=== PATIENT | female | born 1975 | race Caucasian/White ===

== ENCOUNTER 2022-04-27 11:10 | Emergency (ER) | payer BC, SELFPAY ==
[2022-04-27 11:24] VITALS: BP 130/80; PULSE 94; RESP 16; TEMP 36.5; O2SAT 100
--- NOTE | 2022-04-27 11:53 | ED.URI ---
HPI - URI/Sore Throat General Chief Complaint: Upper Respiratory Infection Stated Complaint: Sinus Time Seen by Provider: 04/27/22 11:54 Source: patient, RN notes reviewed and old records reviewed Mode of arrival: ambulatory Limitations: no limitations History of Present Illness HPI Narrative: 46-year-old female presents to the [facility] concerns for sinus infection. Has had symptoms of sinus pain, pressure, ear pain for over 2 weeks. Reports that her grandson was hospitalized for a viral infection and dehydration Related Data Home Medications Medication Instructions Recorded Confirmed apremilast 30 mg tablet (Otezla) mg PO 04/27/22 celecoxib 100 mg capsule mg 04/27/22 ciclopirox 1 % shampoo topical 04/27/22 clobetasol 0.05 % scalp solution topical 04/27/22 dextroamphetamine-amphetamine ER PO 04/27/22 10 mg 24hr capsule,extend release duloxetine 60 mg capsule,delayed mg PO 04/27/22 release folic acid 1 mg tablet 04/27/22 hydroxyzine HCl 25 mg tablet mg 04/27/22 ketoconazole 2 % shampoo topical 04/27/22 metoprolol succinate 100 mg mg PO 04/27/22 tablet,extended release 24 hr ropinirole 2 mg tablet mg 04/27/22 topiramate 25 mg tablet mg 04/27/22 Allergies Allergy/AdvReac Type Severity Reaction Status Date / Time cyclobenzaprine Allergy Unknown Blister Verified 04/27/22 11:28 erythromycin base Allergy Unknown Anaphylaxis Unverified 04/27/22 11:28 lisdexamfetamine Allergy Unknown Blister Verified 04/27/22 11:28 Penicillins Allergy Unknown Anaphylaxis Verified 04/27/22 11:28 Sulfa (Sulfonamide Allergy Unknown Blister Unverified 04/27/22 11:28 Antibiotics) vancomycin Allergy Unknown Anaphylaxis Verified 04/27/22 11:28 Review of Systems Review of Systems: All systems reviewed & are unremarkable except as noted in HPI and below Constitutional: Constitutional: Reports no additional constitutional complaints Eyes: Eyes: Reports no additional eye complaints ENT: Reports as per HPI Cardiovascular: Cardiovascular: Reports no additional cardiovascular complaints, Denies chest pain and Denies dyspnea Respiratory: Respiratory: Reports no additional respiratory complaints, Denies chest congestion, Denies cough and Denies dyspnea Gastrointestinal: Gastrointestinal: Reports no additional gastrointestinal complaints, Denies abdominal pain, Denies nausea and Denies vomiting Musculoskeletal: Musculoskeletal: Reports no additional musculoskeletal complaints Integumentary/Breasts: Skin/Breast: Reports system reviewed and no additional complaints, except as docu Neurologic: Reports system reviewed and no additional complaints, except as documented Psychiatric: Psychiatric: Reports no additional psychiatric complaints Allergic/Immunologic: Allergic/Immunologic: Reports no additional allergic/immunologic complaints PMFSH Family History Family History Father Family history of heart disease in male family member before age 55 Other Family history of malignant neoplasm of breast Social History Social History Alcohol intake: current Comments At the time of my signature, I reviewed and agree with the nursing past medical, surgical, social, and family history. There is no relevant family history pertinent to the patient complaint. Exam Const: General: cooperative, healthy appearing, comfortable, no acute distress, well developed, alert and well nourished Nutritional Appearance: well nourished and obese Orientation/consciousness: patient oriented x3 Limitations: no limitations HENMT: Head: normal to inspection Ears: hearing grossly normal bilaterally, external ears normal, EAC's normal and TM abnormal with fluid behind the TM bilateral Face/Nose/Sinus: Normal external nose present, Normal nares present, Abnormal mucous membranes and turbinates present boggy and erythematous, normal facial ex
== END 2022-04-27 12:10 | disposition home or self-care (01) ==
PROVIDERS: Emergency Provider Nurse Practitioner; PCP Physician Assistant Medical
DX: J32.9 Chronic sinusitis, unspecified (principal)
CPT/HCPCS: 99213; G0463

== ENCOUNTER 2023-02-02 11:42 | Emergency (ER) | payer BC, SELFPAY ==
[2023-02-02 12:13] VITALS: BP 123/93; PULSE 86; RESP 20; TEMP 37; O2SAT 99
--- NOTE | 2023-02-02 12:34 | ED.WOUNDLAC ---
HPI - Wound/Laceration General Chief Complaint: Wound/Laceration Stated Complaint: right middle finger cut Source: patient Mode of arrival: ambulatory Limitations: no limitations History of Present Illness HPI narrative: 47-year-old female presents to [facility] with complaints of avulsion injury to her right 3rd finger after cutting it using a mandoline slicer last evening at her home. Patient reports her last tetanus shot is within the past 5 years. Patient reports that there was no active bleeding but wound was bleeding as of late last night. Patient reports that she is here today to have the area cleansed. Patient denies numbness, tingling, decreased range of motion. Onset (ago): day(s) (1) Place: home Patient tetanus UTD: Yes Context: accidental Related Data Home Medications Medication Instructions Recorded Confirmed apremilast 30 mg tablet (Otezla) mg PO 04/27/22 celecoxib 100 mg capsule mg 04/27/22 ciclopirox 1 % shampoo topical 04/27/22 clobetasol 0.05 % scalp solution topical 04/27/22 dextroamphetamine-amphetamine ER PO 04/27/22 10 mg 24hr capsule,extend release duloxetine 60 mg capsule,delayed mg PO 04/27/22 release folic acid 1 mg tablet 04/27/22 hydroxyzine HCl 25 mg tablet mg 04/27/22 ketoconazole 2 % shampoo topical 04/27/22 metoprolol succinate 100 mg mg PO 04/27/22 tablet,extended release 24 hr ropinirole 2 mg tablet mg 04/27/22 topiramate 25 mg tablet mg 04/27/22 Allergies Allergy/AdvReac Type Severity Reaction Status Date / Time cyclobenzaprine Allergy Unknown Blister Verified 02/02/23 12:10 erythromycin base Allergy Unknown Anaphylaxis Verified 02/02/23 12:10 lisdexamfetamine Allergy Unknown Blister Verified 02/02/23 12:10 Penicillins Allergy Unknown Anaphylaxis Verified 02/02/23 12:10 Sulfa (Sulfonamide Allergy Unknown Blister Verified 02/02/23 12:10 Antibiotics) vancomycin Allergy Unknown Anaphylaxis Verified 02/02/23 12:10 Review of Systems Constitutional: Constitutional: Denies chills, Denies fatigue, Denies fever(s) and Denies weakness ENT: Denies dizziness, Denies epistaxis and Denies nasal congestion Cardiovascular: Cardiovascular: Denies chest pain Respiratory: Respiratory: Denies cough, Denies dyspnea and Denies wheezing Musculoskeletal: Musculoskeletal: Denies arthralgias and Denies joint swelling Integumentary/Breasts: Skin/Breast: Denies pruritus Comments: avulsion injury to right 3rd finger Neurologic: Denies dizziness, Denies syncope and Denies headache(s) Allergic/Immunologic: Allergic/Immunologic: Denies lip swelling, Denies throat swelling, Denies tongue swelling and Denies wheezing PMFSH Family History Family History Father Family history of heart disease in male family member before age 55 Other Family history of malignant neoplasm of breast Social History Social History Alcohol intake: current Comments At time of signature, I agree with nursing past medical, surgical, social and family history. There is no relevant family history pertinent to the presenting complaint. Exam Const: General: healthy appearing and no acute distress Nutritional Appearance: well nourished Orientation/consciousness: patient oriented x3 Limitations: no limitations HENMT: Head: normal to inspection Eyes: Conjunctivae: conjunctivae normal Neck: Neck: normal visual inspection Resp: Effort & Inspection: normal respiratory effort and not labored Auscultation: clear to auscultation bilaterally, no crackles, no rales, no rhonchi and no wheezes Cardio: Rate: regular rate Rhythm: regular rhythm Heart sounds: no murmurs Skin: General skin exam: normal color Rashes: no rashes Wounds: wounds noted avulsion right 3rd finger Other: No active bleeding noted, dried blood noted to wound Neuro: General: patient oriented x3 S
== END 2023-02-02 13:04 | disposition home or self-care (01) ==
PROVIDERS: Emergency Provider Nurse Practitioner Family; PCP Physician Assistant Medical
DX: S61.212A Laceration without foreign body of right middle finger without damage to nail, initial encounter (principal); W27.4XXA Contact with kitchen utensil, initial encounter
CPT/HCPCS: 99212; G0463

== ENCOUNTER 2023-03-16 16:11 | Emergency (ER) | payer BC, SELFPAY ==
[2023-03-16 16:38] VITALS: BP 142/97; PULSE 84; RESP 18; TEMP 36.5; O2SAT 100
--- NOTE | 2023-03-16 16:54 | ED.NAVMDI ---
HPI - Nausea/Vomiting/Diarrhea General Chief complaint: Nausea/Vomiting/Diarrhea Stated complaint: diarrhea,stomach cramps Time Seen by Provider: 03/16/23 16:54 Source: patient Mode of arrival: ambulatory Limitations: no limitations History of Present Illness HPI Narrative: 47-year-old female presents with complaint of nausea, diarrhea, abdominal cramping Starting last night. Has had several episodes of diarrhea. States once nausea started she took Zofran and has not had any vomiting. Last Zofran at 1:00 p.m. afebrile. Also reports fatigue body aches and chills. All systems reviewed and negative except as noted above. Related Data Home Medications Medication Instructions Recorded Confirmed dextroamphetamine-amphetamine ER 10 mg PO DAILY 04/27/22 03/16/23 10 mg 24hr capsule,extend release duloxetine 60 mg capsule,delayed 60 mg PO DAILY 04/27/22 03/16/23 release hydroxyzine HCl 25 mg tablet 25 mg PO DAILY 04/27/22 03/16/23 metoprolol succinate 100 mg 100 mg PO DAILY 04/27/22 03/16/23 tablet,extended release 24 hr ropinirole 2 mg tablet 2 mg PO DAILY 04/27/22 03/16/23 topiramate 25 mg tablet 25 mg PO DAILY 04/27/22 03/16/23 hydroxychloroquine 200 mg tablet mg PO 03/16/23 risankizumab-rzaa 150 mg/mL 150 mg subcut [id number] 03/16/23 03/16/23 subcutaneous pen injector (Skyrizi) Allergies Allergy/AdvReac Type Severity Reaction Status Date / Time cyclobenzaprine Allergy Unknown Blister Verified 03/16/23 16:33 erythromycin base Allergy Unknown Anaphylaxis Verified 03/16/23 16:33 lisdexamfetamine Allergy Unknown Blister Verified 03/16/23 16:33 Penicillins Allergy Unknown Anaphylaxis Verified 03/16/23 16:33 Sulfa (Sulfonamide Allergy Unknown Blister Verified 03/16/23 16:33 Antibiotics) vancomycin Allergy Unknown Anaphylaxis Verified 03/16/23 16:33 Review of Systems Review of Systems: CONSTITUTIONAL: Denies fever, chills, or sweats. EYES: Denies visual changes, redness, or discharge. ENT: Denies rhinorrhea, congestion, sore throat, or otalgia. CARDIOVASCULAR: Denies chest pain, palpitations, or edema. RESPIRATORY: Denies cough or dyspnea. GASTROINTESTINAL: Reports abdominal cramping, nausea, and diarrhea. denies vomiting GENITOURINARY: Denies dysuria or hematuria. SKIN: Denies rash or itching. MUSCULOSKELETAL: Denies back pain, joint pain, or myalgia. NEUROLOGIC: Denies headache, numbness, or weakness. PSYCHIATRIC: Denies anxiety or depression. All other systems reviewed are negative, except as documented in HPI. FORMERLY [facility], [facility]1983 Family History Family History Father Family history of heart disease in male family member before age 55 Other Family history of malignant neoplasm of breast Social History Social History Alcohol intake: current Comments At time of signature, agree with nursing past medical, surgical, social and family history. There is no relevant family history pertinent to the presenting complaint. Exam Narrative: GENERAL: This is a well-nourished, well-developed patient, in no apparent distress. HEAD: normocephalic, atraumatic. EYES: PERRL. Sclera clear/white. Vision is grossly intact. EARS: External ears normal NOSE: External nose normal NECK: Neck supple, non-tender without lymphadenopathy, masses or thyromegaly. CARDIOVASCULAR: Regular rate and rhythm without murmurs, gallops, or rubs. RESPIRATORY: Clear to auscultation. Breath sounds equal bilaterally. No wheezes, rales, or rhonchi. GASTROINTESTINAL: Abdomen soft, non-tender, nondistended. Bowel sounds are active. No hepato-splenomegaly, or palpable masses. No guarding. SKIN: warm, Dry, intact with no suspicious lesions or rash, good texture and turgor. NEURO: awake, alert, and oriented to person, place and time. There were no obvious focal neurologic abnormalities. EXTREMITIES: No joint tenderness, effusion, or
== END 2023-03-16 17:05 | disposition home or self-care (01) ==
PROVIDERS: Emergency Provider Nurse Practitioner Family; PCP Physician Assistant Medical
DX: A08.4 Viral intestinal infection, unspecified (principal); Z79.899 Other long term (current) drug therapy
CPT/HCPCS: 99213; G0463

== ENCOUNTER 2024-11-13 11:51 | Emergency (ER) | payer MEDICARE, SELFPAY ==
[2024-11-13 12:02] VITALS: BP 123/75; PULSE 84; RESP 18; TEMP 36.5; O2SAT 100
--- NOTE | 2024-11-13 12:09 | ED_ITS ---
HPI - Dental/Oral General Chief complaint: Dental/Oral Stated complaint: tooth pain Time Seen by Provider: 11/13/24 12:10 Source: patient, RN notes reviewed and old records reviewed Mode of arrival: ambulatory Limitations: no limitations History of Present Illness HPI Narrative: 49-year-old female presents for right upper dental pain and swelling for 2 days. States that she does have a dentist but is unable to get on the weekend. No treatment prior to arrival Related Data Home Medications ?Medication ?Instructions ?Recorded ?Confirmed ?Last Taken ?Type dextroamphetamine-amphetamine ER 10 mg PO DAILY 04/27/22 03/16/23 Unknown History 10 mg 24hr capsule,extend release duloxetine 60 mg capsule,delayed 60 mg PO DAILY 04/27/22 03/16/23 Unknown History release hydroxyzine HCl 25 mg tablet 25 mg PO DAILY 04/27/22 03/16/23 Unknown History metoprolol succinate 100 mg 100 mg PO DAILY 04/27/22 03/16/23 Unknown History tablet,extended release 24 hr ropinirole 2 mg tablet 2 mg PO DAILY 04/27/22 03/16/23 Unknown History topiramate 25 mg tablet 25 mg PO DAILY 04/27/22 03/16/23 Unknown History hydroxychloroquine 200 mg tablet mg PO 03/16/23 Unknown History risankizumab-rzaa 150 mg/mL 150 mg subcut [id number] 03/16/23 03/16/23 Unknown History subcutaneous pen injector (Skyrizi) Allergies Allergy/AdvReac Type Severity Reaction Status Date / Time cyclobenzaprine Allergy Unknown Blister Verified 03/16/23 16:33 erythromycin base Allergy Unknown Anaphylaxis Verified 03/16/23 16:33 lisdexamfetamine Allergy Unknown Blister Verified 03/16/23 16:33 Penicillins Allergy Unknown Anaphylaxis Verified 03/16/23 16:33 Sulfa (Sulfonamide Allergy Unknown Blister Verified 03/16/23 16:33 Antibiotics) vancomycin Allergy Unknown Anaphylaxis Verified 03/16/23 16:33 Review of Systems Review of Systems: All systems reviewed & are unremarkable except as noted in HPI and below Constitutional: Constitutional: Reports no additional constitutional complaints ENT: Reports as per HPI and Reports dental pain Cardiovascular: Cardiovascular: Reports no additional cardiovascular complaints, Denies chest pain and Denies dyspnea Respiratory: Respiratory: Reports no additional respiratory complaints, Denies chest congestion, Denies cough and Denies dyspnea Musculoskeletal: Musculoskeletal: Reports no additional musculoskeletal complaints Integumentary/Breasts: Skin/Breast: Reports system reviewed and no additional complaints, except as docu [facility] Family History Family History Father Family history of heart disease in male family member before age 55 Other Family history of malignant neoplasm of breast Social History Social History Alcohol intake: current Comments At the time of my signature, I reviewed and agree with the nursing past medical, surgical, social, and family history. There is no relevant family history pertinent to the patient complaint. Exam Const: General: cooperative, healthy appearing, comfortable, no acute distress, well developed, alert and well nourished Nutritional Appearance: well nourished Orientation/consciousness: patient oriented x3 Limitations: no limitations HENMT: Head: normal to inspection Ears: hearing grossly normal bilaterally, external ears normal, TM's normal bilaterally, EAC's normal, mastoids normal and no periauricular adenopathy Mouth: Yes Normal oral and palatal mucosa present, Yes lip normal, Yes tongue normal and Yes moist mucous membranes Teeth and gingiva: caries, fair dentition and gingiva abnormal edematous (Right upper) Throat: posterior oropharynx normal, uvula midline and no uvular edema Eyes: General: appearance normal, both eyes and all related structures Alignment and Position: alignment normal Neck: Neck: normal visual inspection, full ROM, no lymphadenopathy and no meningeal signs Chest: Chest palpation & inspection: normal inspection of the chest Resp: Effort & Inspection: normal respiratory effort and able to speak in complete sentences Auscultation: clear to auscultation bilaterally, no crackles, no rales, no rhonchi and no wheezes Cardio: Rate: regular rate Skin: General skin exam: normal color and no rashes or lesions noted Neuro: General: patient oriented x3, gait normal, moves all extremities and no meningeal signs Cognition (Neuro): normal cognition Speech: normal speech Gait exam (Neuro): Normal gait present Extrem: General: normal to inspection, full ROM, capillary refill normal and normal gait Psych: Appearance: grossly normal and well kempt Mental Status: mental status grossly normal Speech and movement: Normal speech and movement present and Clear speech present Affect: normal affect Attitude: cooperative Course Course Level of Care: Express Care Visit Vital Signs Vital signs: Vital Signs Temperature 97.7 F 11/13/24 12:02 Pulse Rate 84 11/13/24 12:02 Respiratory Rate 18 11/13/24 12:02 Blood Pressure 123/75 11/13/24 12:02 Pulse Oximetry 100 11/13/24 12:02 Oxygen Delivery Room Air 11/13/24 12:02 Temperature 97.7 F 11/13/24 12:02 Pulse Rate 84 11/13/24 12:02 Respiratory Rate 18 11/13/24 12:02 Blood Pressure 123/75 11/13/24 12:02 Pulse Oximetry 100 11/13/24 12:02 Oxygen Delivery Room Air 11/13/24 12:02 Reviewed MDM - Dental/Oral MDM Narrative Medical decision making narrative: Patient sitting in exam. Patient is nontoxic, vitals are stable. Patient presents with right upper dental pain, swelling. Patient is appropriate for outpatient treatment with antibiotic and close follow-up. States that she does have a dental provider, Dr. Obrien Discharge instructions reviewed with patient, as well as provided in writing per nursing staff. The instructions also include specific and strict return/GO TO THE ER as well as f/u information. All questions have been answered, and the patient deny any further questions with discharge and discharge plan. Some parts of this dictation were generated by voice recognition software and may contain typographical and/or grammatical inaccuracies. Differential Diagnosis Differential diagnosis: Likely gingival abscess, dental caries, toothache, dental abscess and fracture of tooth Critical Care Time Critical Care Time Critical Care Time: No Discharge Plan Discharge Clinical Impression: Dental caries, Dental abscess Patient Disposition: Home Condition: Stable Instructions: Antibiotic Form, Dental Abscess (ED) Additional Instructions: Finish the entire course of antibiotics [place] teeth and using good mouthwash twice daily After every time you eat be sure to use salt water rinses. Apply ice to face to help with pain. Take Tylenol 650mg alternating with Motrin 600mg as needed for pain. You can alternate every 4 hours Follow-up with your dental provider as soon as possible Follow up with a Primary Care Provider (PCP) about medical needs. A PCP can help keep you healthy by preventive medicine and screening. Go to the ER for New or worsening symptoms. Patient Language: Citizen Of [place] Prescriptions: New clindamycin HCl [Cleocin HCl] 300 mg capsule 300 mg PO Q6H 7 Days Qty: 28 0RF No Action metoprolol succinate 100 mg tablet extended release 24 hr 100 mg PO DAILY topiramate 25 mg tablet 25 mg PO DAILY ropinirole 2 mg tablet 2 mg PO DAILY dextroamphetamine-amphetamine 10 mg capsule,extended release 24hr 10 mg PO DAILY hydroxyzine HCl 25 mg tablet 25 mg PO DAILY duloxetine 60 mg capsule,delayed release(DR/EC) 60 mg PO DAILY hydroxychloroquine 200 mg tablet PO Skyrizi 150 mg/mL pen injector 150 mg SUBCUT [id number] dicyclomine 20 mg tablet 20 mg PO Q6-8H PRN (Reason: abdominal pain) Qty: 20 0RF ondansetron 4 mg tablet,disintegrating 4 mg PO Q8H PRN (Reason: nausea and vomiting) Qty: 12 0RF Follow-up/Referrals: Sherman,CARLEY Zuniga [Primary Care Provider] - 2 Weeks Time of Disposition: 12:22
== END 2024-11-13 12:24 | disposition home or self-care (01) ==
PROVIDERS: Emergency Provider Nurse Practitioner; PCP Physician Assistant Medical
DX: K02.9 Dental caries, unspecified (principal); K04.7 Periapical abscess without sinus; I10 Essential (primary) hypertension; M06.9 Rheumatoid arthritis, unspecified
CPT/HCPCS: 99213; G0463

== ENCOUNTER 2025-03-15 13:59 | Emergency (ER) | payer MEDICARE, SELFPAY ==
[2025-03-15 14:06] VITALS: BP 131/82; PULSE 76; RESP 18; TEMP 36.8; O2SAT 99
[2025-03-15 14:14] LABS: EDUAAPPEAR Cloudy; EDUABILI Negative (Negative); EDUABLOOD 2+ (Negative); EDUACOLOR1 Dark; EDUAGLUCOSE Negative (Negative); EDUAKETONE Negative (Negative); EDUALEUKO 1+ (Negative); EDUANITRATE Positive (Negative); EDUAPH 5.5; EDUAPROTEIN 3+ (Negative); EDUASPGRAVITY 1.030; EDUAUROBILI 0.2
--- NOTE | 2025-03-15 14:44 | ED.FEMALEGU ---
HPI - Female Genitourinary General Chief complaint: Urogenital-Female Stated complaint: UTI Time Seen by Provider: 03/15/25 14:10 Source: patient Mode of arrival: ambulatory Limitations: no limitations History of Present Illness HPI Narrative: Nataliia is a 49-year-old female patient presenting to the clinic today with complaints of possible UTI. She reports she is having burning, frequency, and urgency with urination for the past 2-3 days. No known fevers, chills, body aches. Denies any back pain or belly pain. No nausea or vomiting. Has not taken anything for symptoms. Denies any vaginal discharge or pelvic pain. No concern for STIs. Related Data Home Medications ?Medication ?Instructions ?Recorded ?Confirmed ?Last Taken ?Type duloxetine 60 mg capsule,delayed 60 mg PO DAILY 04/27/22 03/16/23 Unknown History release metoprolol succinate 100 mg 100 mg PO DAILY 04/27/22 03/16/23 Unknown History tablet,extended release 24 hr ropinirole 2 mg tablet 2 mg PO DAILY 04/27/22 03/16/23 Unknown History amlodipine 5 mg tablet mg 03/15/25 Unknown History dextroamphetamine-amphetamine ER PO 03/15/25 Unknown History 30 mg 24hr capsule,extend release epinephrine 0.3 mg/0.3 mL 03/15/25 Unknown History injection, auto-injector Allergies Allergy/AdvReac Type Severity Reaction Status Date / Time cyclobenzaprine Allergy Unknown Blister Verified 03/15/25 14:20 erythromycin base Allergy Unknown Anaphylaxis Verified 03/15/25 14:20 lisdexamfetamine Allergy Unknown Blister Verified 03/15/25 14:20 Penicillins Allergy Unknown Anaphylaxis Verified 03/15/25 14:20 Sulfa (Sulfonamide Allergy Unknown Blister Verified 03/15/25 14:20 Antibiotics) vancomycin Allergy Unknown Anaphylaxis Verified 03/15/25 14:20 Review of Systems Review of Systems: Pertinent positives per HPI. Patient denies any fever, chills, rash, headache, visual changes, dizziness, cough, runny nose, sore throat, shortness of breath, chest pain, palpitations, nausea, vomiting, diarrhea, constipation, abdominal pain. PMFSH Family History Family History Father Family history of heart disease in male family member before age 55 Other Family history of malignant neoplasm of breast Social History Social History Alcohol intake: current Comments At the time of my signature, I reviewed and agree with the nursing past medical, surgical, social, and family history. There is no relevant family history pertinent to the patient complaint. Exam Narrative: General: Well-developed, well nourished, in no apparent distress. Head: Normocephalic, atraumatic. Cardio: Regular rate and rhythm, s1 and s2 normal, no murmur appreciated. Resp: Clear to auscultation bilaterally, no rhonchi, rales, wheezing or rubs. Abdomen: Soft, pliable, bowel sounds present in all quadrants, suprapubic-tender to palpation, no organomegly, no CVAT tenderness. : Deferred Course Course Emergency Course: Portions of this record may have been created with voice recognition software. Level of Care: Express Care Visit Vital Signs Vital signs: Vital Signs Temperature 36.8 C 03/15/25 14:06 Pulse Rate 76 03/15/25 14:06 Respiratory Rate 18 03/15/25 14:06 Blood Pressure 131/82 03/15/25 14:06 Pulse Oximetry 99 03/15/25 14:06 Oxygen Delivery Room Air 03/15/25 14:06 Temperature 36.8 C 03/15/25 14:06 Pulse Rate 76 03/15/25 14:06 Respiratory Rate 18 03/15/25 14:06 Blood Pressure 131/82 03/15/25 14:06 Pulse Oximetry 99 03/15/25 14:06 Oxygen Delivery Room Air 03/15/25 14:06 Vital signs reviewed MDM - Female Genitourinary MDM Narrative Medical decision making narrative: At the time of visit patient is resting comfortably on the exam table. Patient appears to be nontoxic.complaints of possible UTI. She reports she is having burning, frequency, and urgency with urination for the past 2-3 days. No known fevers, chills, body aches. Denies any back pain or belly pain. No nausea or vomiting. Has not taken anything for symptoms. Denies any vaginal discharge or pelvic pain. No concern for STIs. On exam patient has soft, pliable, nondistended abdomen, mild suprapubic tenderness, no CVAT tenderness, no organomegaly, bowel sounds present all 4 quadrants. UA dip ordered. Labs: Urinalysis positive for leukocytes, nitrates, protein, and blood. We will send urine for culture Plan: I suspect patient has UTI. Prescription for cephalexin was sent to the pharmacy. 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 Patient has been on cephalexin before and tolerates this medication well. Supportive measures were discussed with the patient and they voiced understanding discharge instructions and agrees to treatment plan. Return precautions reviewed Differential Diagnosis Differential diagnosis: Likely urinary tract infection and cystitis Lab Data Labs: Lab Results 03/15/25 Range/Units 14:12 POC Urine Color Dark POC Urine Clarity Cloudy POC Urine pH 5.5 POC Ur Specif Howe 1.030 POC Urine Protein 3+ (Negative) POC Ur Glucose (UA) Negative (Negative) POC Urine Ketones Negative (Negative) POC Urine Blood 2+ (Negative) POC Urine Nitrite Positive (Negative) POC Urine Bilirubin Negative (Negative) POC Urine Urobilinogen 0.2 POC U Leukocyte Esteras 1+ (Negative) Discharge Plan Discharge Clinical Impression: Urinary tract infection Patient Disposition: Home Condition: Stable Instructions: Antibiotic Form, Urinary Tract Infection in Women (ED) Additional Instructions: Urinalysis positive for leukocytes, nitrates, blood, and protein. We will send urine for culture. Take cephalexin as prescribed Increase fluids and stay well hydrated Wipe front to back. May use wet wipes. Avoid tub baths If sexually active- pee before and after intercourse. Wear cotton panties Avoid tight clothing up against the genitals Follow up with your PCP in 1 week if symptoms persist. Patient Language: Hungarian Prescriptions: New cephalexin 500 mg capsule 500 mg PO Q12H 7 Days Qty: 14 0RF No Action metoprolol succinate 100 mg tablet extended release 24 hr 100 mg PO DAILY ropinirole 2 mg tablet 2 mg PO DAILY duloxetine 60 mg capsule,delayed release(DR/EC) 60 mg PO DAILY amlodipine 5 mg tablet epinephrine 0.3 mg/0.3 mL auto-injector dextroamphetamine-amphetamine 30 mg capsule,extended release 24hr PO Follow-up/Referrals: Sherman,CARLEY Zuniga [Primary Care Provider, Unknown] Quality NIHSS Nursing Documentation ED NIHSS nursing documentation: reviewed/agree
== END 2025-03-15 14:31 | disposition home or self-care (01) ==
PROVIDERS: Emergency Provider Nurse Practitioner Family; PCP Physician Assistant Medical
DX: N39.0 Urinary tract infection, site not specified (principal); Z79.899 Other long term (current) drug therapy
CPT/HCPCS: 81003; 87077; 87086; 87186; 99213; G0463